=== PATIENT | male | born 2000 | race African-American/Black ===

== ENCOUNTER 2024-03-16 07:44 | Emergency (ER) | payer MEDICAID, OTHER ==
[~2024-03-16] VITALS: Ht 175.3 cm; Wt 64.0 kg
[2024-03-16 08:05] VITALS: O2SAT 100
[2024-03-16] MEDS ORDERED: IBUP-2028 PO (08:47)
[2024-03-16] MEDS: IBUPROFEN 400MG TABLET PO ONE (08:51)
[2024-03-16 09:10] VITALS: BP 133/77; PULSE 80; RESP 16; TEMP 36.66960; O2SAT 100
== END 2024-03-16 09:31 | disposition home or self-care (01) ==
LOC: ER 08:18
DX: M25.512 Pain in left shoulder (principal)
CPT/HCPCS: 73030; 99283; A4565